=== PATIENT | male | born 1990 | race Caucasian/White ===

== ENCOUNTER 2018-05-29 17:52 | Emergency (ER) | payer SELFPAY ==
[~2018-05-29] VITALS: Ht 175.3 cm; Wt 70.0 kg
[2018-05-29] MEDS ORDERED: DIPH,PERTUSS(ACELL),TET VAC/PF 0.5 ML IM-VACC ONE ×2 (18:00→18:05)
[2018-05-29] MEDS ORDERED: LIDOCAINE-MPF 1%, 5ML ONE ×2 (18:05→19:07)
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
[2018-05-29 19:18] VITALS: BP 127/77
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
== END 2018-05-29 20:12 | disposition home or self-care (01) ==
LOC: ED 20:00
DX: S02.2XXA Fracture of nasal bones, initial encounter for closed fracture (principal); S01.81XA Laceration without foreign body of other part of head, initial encounter; S01.111A Laceration without foreign body of right eyelid and periocular area, initial encounter; S01.419A Laceration without foreign body of unspecified cheek and temporomandibular area, initial encounter; S20.319A Abrasion of unspecified front wall of thorax, initial encounter; S30.811A Abrasion of abdominal wall, initial encounter; M79.602 Pain in left arm; Y04.8XXA Assault by other bodily force, initial encounter; Y93.89 Activity, other specified; Y92.410 Unspecified street and highway as the place of occurrence of the external cause; Y99.8 Other external cause status; F17.200 Nicotine dependence, unspecified, uncomplicated
CPT/HCPCS: 12052; 70450; 70486; 71046; 90471; 90715; 99284; 99285

== ENCOUNTER 2019-05-10 18:50 | Emergency (ER) | payer BC, OTHER ==
[~2019-05-10] VITALS: Ht 175.3 cm; Wt 76.8 kg
[2019-05-10 19:09] VITALS: BP 125/71
[2019-05-10 19:36] LABS: BASOPHILS # (AUTO) 0.06 x10^3/uL (0-0.1); BASOPHILS % (AUTO) 1 % (0-1); EOSINOPHILS # (AUTO) 0.92 x10^3/uL (0-0.4); EOSINOPHILS % (AUTO) 12 % (1-7); LYMPHOCYTES # (AUTO) 3.58 x10^3/uL (1-3.4); LYMPHOCYTES % (AUTO) 45 % (22-44); MD NO; MEAN CORPUSCULAR HEMOGLOBIN 30.9 pg (27.5-34.5); MEAN CORPUSCULAR HGB CONC 33.8 g/dL (33.2-36.2); MEAN CORPUSCULAR VOLUME 91.6 fL (81-97); MEAN PLATELET VOLUME 9.1 fL (7.4-10.4); MONOCYTES # (AUTO) 0.64 x10^3/uL (0.2-0.8); MONOCYTES % (AUTO) 8 % (2-9); NEUTROPHILS # (AUTO) 2.79 x10^3/uL (1.8-6.8); NEUTROPHILS % (AUTO) 35 % (42-75); PLATELET COUNT 240 x10^3/uL (130-400); RED BLOOD COUNT 5.24 x10^6/uL (4.38-5.82); RED CELL DISTRIBUTION WIDTH 14.4 % (9.4-14.8)
[2019-05-10 19:45] LABS: ANION GAP 4 mmol/L (5-15); CALCIUM 8.5 mg/dL (8.5-10.1); CHLORIDE 109 mmol/L (98-107); CREATININE 1.06 mg/dL (0.7-1.3)
--- NOTE | 2019-05-10 20:01 | NUR ---
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
[2019-05-10 20:43] LABS: CULTURE INDICATED? YES; MICROSCOPIC AUTO
--- NOTE | 2019-05-10 20:47 | NUR ---
PT CAME IN CO OF "PEEING BLOOD. IT LOOKED LIKE A BLOOD CLOT CAME OUT OF MY PENIS". URINE HAS BEEN SENT
[2019-05-10] MEDS ORDERED: CEFTRIAXONE 250 MG IM ONE (21:30)
[2019-05-10] MEDS ORDERED: CEFTRIAXONE 250 MG ONE (21:32)
== END 2019-05-10 22:05 | disposition home or self-care (01) ==
LOC: ED 19:59
DX: N30.00 Acute cystitis without hematuria (principal); N34.2 Other urethritis
CPT/HCPCS: 36415; 80048; 81001; 85025; 87086; 87491; 87591; 96372; 99283; J0696